=== PATIENT | female | born 1990 | race Caucasian/White ===

== ENCOUNTER 2022-06-20 14:21 | Day surgery (SDC) | payer BC ==
[2022-06-20] MEDS ORDERED: hydrALAZINE 20 MG/ML VIAL SLOW IVP PRN (15:22)
[2022-06-20 17:05] LABS: Bilirubin Neg (Negative); Blood, Urine Negative (Negative); CAUTI Indications for Culture Pregnancy; Clarity Clear (Clear); Glucose, Urine (Dipstick) Normal (Negative); Ketone, Urine Negative (Negative); Leukocyte Negative (Negative); Nitrite Negative (Negative); Protein, Urine (Dipstick) Negative (Neg-Trace); Urobilinogen Normal mg/dL (Less than 2)
[2022-06-20 17:06] LABS: Urine Culture Reflex Yes Yes
[2022-06-20 17:20] LABS: Bacteria/HPF 2+ HPF (None Seen); RBC/HPF 0-3 HPF (0-3); Squamous Epithelial 0-3 HPF (0-3); WBC/HPF 0-3 HPF (0-3)
== END 2022-06-20 17:45 | disposition home health service (06) ==
LOC: CSHLD/OP 14:21
PROVIDERS: ATTEND Obstetrics & Gynecology
DX: O36.8130 Decreased fetal movements, third trimester, not applicable or unspecified (principal); O47.03 False labor before 37 completed weeks of gestation, third trimester; O23.43 Unspecified infection of urinary tract in pregnancy, third trimester; N39.0 Urinary tract infection, site not specified; O16.3 Unspecified maternal hypertension, third trimester; Z3A.32 32 weeks gestation of pregnancy; Z88.2 Allergy status to sulfonamides
CPT/HCPCS: 76819; 81001; 87086; 99282

== ENCOUNTER 2022-07-26 09:55 | Inpatient (IN) | payer BC ==
[2022-07-26] MEDS ORDERED: Ondansetron PF 4 MG/2 ML Vial ONE (10:51)
[2022-07-26] MEDS ORDERED: Dexamethasone 4 mg/ml Vial ONE (10:51)
[2022-07-26] MEDS ORDERED: Morphine PF 10 MG/10 ML VIAL ONE (10:51)
[2022-07-26] MEDS ORDERED: Oxytocin 10 UNITS/ML VIAL ONE (10:51)
[2022-07-26] MEDS ORDERED: Ketorolac Tromethamine 30 MG/ML VIAL ONE (10:51)
[2022-07-26] MEDS ORDERED: Fentanyl 100 MCG/2 ML VIAL ONE (10:51)
[2022-07-26] MEDS ORDERED: Ondansetron PF 4 MG/2 ML Vial IVP PRN ×3 (10:58→16:23)
[2022-07-26] MEDS ORDERED: Famotidine/PF 20 mg/2ml Vial SLOW IVP PRN (10:58)
[2022-07-26] MEDS ORDERED: Promethazine HCl 25 MG/ML VIAL IM PRN ×3 (10:58→17:40)
[2022-07-26] MEDS ORDERED: hydrALAZINE 20 MG/ML VIAL SLOW IVP PRN ×2 (10:58→16:23)
[2022-07-26] MEDS ORDERED: Bicitra 30 ML UDCUP PO PRN (10:58)
[2022-07-26] MEDS ORDERED: Lactated Ringer's 1,000 ML IV SCH (11:00)
[2022-07-26] MEDS ORDERED: CEFAZOLIN 2 GM in Sodium Chloride 0.9% 100 ML IVPB SCH (11:00)
[2022-07-26 11:01] VITALS: BMI 38.4
[2022-07-26] MEDS ORDERED: Fentanyl 100 MCG/2 ML VIAL SLOW IVP PRN (11:02)
[2022-07-26] MEDS ORDERED: diphenhydrAMINE 50 MG/ML VIAL IVP PRN (11:02)
[2022-07-26] MEDS ORDERED: Ondansetron HCl/PF 4 MG/2 ML Vial IVP PRN (11:02)
[2022-07-26] MEDS ORDERED: Meperidine HCl/PF 25 MG/ML VIAL SLOW IVP PRN (11:02)
[2022-07-26] MEDS ORDERED: Promethazine HCl 25 MG SUPP PR PRN (11:02)
[2022-07-26] MEDS ORDERED: Naloxone HCl 0.4 mg/ml Vial IVP PRN ×2 (11:02)
[2022-07-26] MEDS ORDERED: Moisturizing Cream (Eucerin) 113 GM JAR TOP PRN (11:02)
[2022-07-26] MEDS ORDERED: Naloxone HCl 0.4 mg/ml Vial IV PRN (11:02)
[2022-07-26] MEDS ORDERED: Communication Order-Pharmacy FS SCH (11:15)
[2022-07-26 11:28] LABS: Hemoglobin 11.6 g/dL (12.0-15.5); Mean Corpuscular Hemoglobin 27.7 pg (27.0-33.0); Mean Corpuscular Volume 83.8 fl (81.6-98.3); Mean Platelet Volume 12.1 fl (7.4-10.4); Platelet Count 206 10x3/uL (150-450); RBC Distribution Width 14.9 % (11.5-14.5); Red Blood Cell (RBC) Count 4.19 10x6/uL (3.90-5.03); White Blood Cell (WBC) Count 12.4 10x3/uL (3.5-10.5)
[2022-07-26 11:52] LABS: Hep B Surf Ag Non-Reactive S/CO (NonReactive)
[2022-07-26 11:53] LABS: Syphilis Antibody Nonreactive (Nonreactive); Syphilis Antibody Index 0.02 S/CO (<1.00 Non-Reactive)
[2022-07-26 12:05] LABS: ALT (SGPT) 16 U/L (8-55); AST (SGOT) 18 U/L (5-34); Albumin 3.6 g/dL (3.5-5.0); Alkaline Phosphatase 119 U/L (40-110); Anion Gap 15 mmol/L (10-20); BUN (Urea Nitrogen) 7 mg/dL (7.0-18.7); Bilirubin, Total 0.4 mg/dL (0.2-1.2); Calc. Creatinine Clearance 215 mL/min (70-130); Calcium 8.7 mg/dL (7.8-10.44); Carbon Dioxide 18 mmol/L (22-29); Chloride 107 mmol/L (98-107); Estimated GFR 125; Globulin 2.7 g/dL (2.4-3.5); Glucose 91 mg/dL (70-105); Protein, Total 6.3 g/dL (6.0-8.3); Sodium 136 mmol/L (136-145)
[2022-07-26] MEDS ORDERED: Bisacodyl 10 MG SUPP PR PRN (16:23)
[2022-07-26] MEDS ORDERED: diphenhydrAMINE 25 MG CAP PO PRN (16:23)
[2022-07-26] MEDS ORDERED: Boostrix 0.5 ML (Tdap) VIAL (>/=7 yrs of age) IM ONE (16:23)
[2022-07-26] MEDS ORDERED: Lanolin Ointment 7 GM TUBE TOP PRN (16:23)
[2022-07-26] MEDS ORDERED: Ibuprofen 800 MG TAB PO SCH (17:00)
[2022-07-26] MEDS ORDERED: Ketorolac Tromethamine 30 MG/ML VIAL IVP SCH (19:00)
[2022-07-26] MEDS: Docusate 100 MG CAP PO SCH (20:08)
[2022-07-26] MEDS: Ferrous Sulfate 325 MG TAB PO SCH (20:08)
[2022-07-26] MEDS: Ketorolac Tromethamine 30 MG/ML VIAL IVP PRN (20:08)
[2022-07-26] MEDS ORDERED: HYDROcodone/Acetaminophen 5/325 mg Tablet PO PRN ×2 (23:15)
[2022-07-27] MEDS: Ketorolac Tromethamine 30 MG/ML VIAL IVP PRN ×4 (02:31→21:29)
[2022-07-27 05:19] LABS: Hemoglobin 9.4 g/dL (12.0-15.5); Mean Corpuscular HGB CONC 32.8 g/dL (32.0-36.0); Mean Corpuscular Hemoglobin 27.8 pg (27.0-33.0); Mean Corpuscular Volume 84.9 fl (81.6-98.3); Mean Platelet Volume 12.3 fl (7.4-10.4); Platelet Count 190 10x3/uL (150-450); RBC Distribution Width 14.8 % (11.5-14.5); Red Blood Cell (RBC) Count 3.38 10x6/uL (3.90-5.03); White Blood Cell (WBC) Count 15.5 10x3/uL (3.5-10.5)
[2022-07-27] MEDS: Ferrous Sulfate 325 MG TAB PO SCH ×2 (08:58→20:23)
[2022-07-27] MEDS: Prenatal Vitamin 1 TAB PO SCH (08:59)
[2022-07-27] MEDS: Simethicone Chewable 80 MG TAB PO PRN ×2 (09:00→18:15)
[2022-07-27] MEDS: Docusate 100 MG CAP PO SCH (09:09)
[2022-07-27] MEDS: Acetaminophen W/ Codeine 5 ML UDCUP PO PRN ×2 (14:41→20:06)
[2022-07-28] MEDS: Acetaminophen W/ Codeine 5 ML UDCUP PO PRN ×4 (00:14→13:06)
[2022-07-28] MEDS: Simethicone Chewable 80 MG TAB PO PRN ×3 (04:49→13:08)
[2022-07-28] MEDS: Ketorolac Tromethamine 30 MG/ML VIAL IVP PRN (04:49)
[2022-07-28] MEDS: Prenatal Vitamin 1 TAB PO SCH (07:38)
[2022-07-28] MEDS: Ferrous Sulfate 325 MG TAB PO SCH (07:38)
[2022-07-28] MEDS ORDERED: Polyethylene Glycol 3350 17 GM Packet PER TUBE SCH (09:00)
[2022-07-28 12:13] VITALS: BP 120/83; TEMP 97.7
[2022-08-01] MEDS ORDERED: Ibuprofen 100 MG/5 ML UDCUP PO PRN (01:00)
== END 2022-07-28 14:30 | disposition home or self-care (01) | DRG 788 ==
LOC: CSHLD 09:55 → CSHPP 15:56
PROVIDERS: ADMIT Obstetrics & Gynecology; ATTEND Obstetrics & Gynecology
PROC: 10D00Z1 Extraction of Products of Conception, Low, Open Approach (ICD-10-PCS; principal; 2022-07-26)
DX: O34.211 Maternal care for low transverse scar from previous cesarean delivery (principal); Z37.0 Single live birth; Z3A.37 37 weeks gestation of pregnancy; O13.4 Gestational [pregnancy-induced] hypertension without significant proteinuria, complicating childbirth; Z88.2 Allergy status to sulfonamides; Z91.048 Other nonmedicinal substance allergy status
CPT/HCPCS: 36415; 51702; 80053; 85027; 86780; 86850; 86900; 86901; 87340; J1100; J1200; J1885; J2274; J2405; J2590; J3010; S0028